=== PATIENT | male | born 1955 | race Hispanic/Latino ===

== ENCOUNTER 2025-03-23 22:08 | Emergency (ER) | payer MEDICARE, OTHER ==
[~2025-03-23] VITALS: Ht 162.6 cm; Wt 68.0 kg
[2025-03-23 22:10] VITALS: PULSE 61; RESP 18; TEMP 97.7
[2025-03-23] MEDS: SODIUM CHLORIDE 0.9% 1000ML 1,000 ML IV STA (23:54)
[2025-03-23 23:56] LABS: BASOPHILS % 0.8 % (0.0-1.0); EOSINOPHILS % 2.3 % (0.0-6.0); LYMPHOCYTES % 25.5 % (18.0-39.1); MONOCYTES % 8.5 % (4.4-11.3); NEUTROPHILS % 62.3 % (38.7-80.0); RED CELL DISTRIBUTION WIDTH 13.2 % (11.7-14.4)
[2025-03-24 00:18] LABS: EST GLOMERULAR FILTRATION RATE 73.0 ML/MIN (>=60)
[2025-03-24 00:31] VITALS: BP 142/83; PULSE 56; RESP 17; TEMP 98.2; O2SAT 98
== END 2025-03-24 00:32 | disposition home or self-care (01) ==
LOC: ER 22:13
DX: R51.9 Headache, unspecified (principal); G40.909 Epilepsy, unspecified, not intractable, without status epilepticus; F17.210 Nicotine dependence, cigarettes, uncomplicated
CPT/HCPCS: 36415; 70450; 80053; 85025; 99284; J7030